=== PATIENT | male | born 1985 | race African-American/Black ===

== ENCOUNTER 2024-01-10 11:30 | Emergency (ER) | payer OTHER, SELFPAY ==
--- NOTE | ~2024-01-10 | XR_ITS ---
EXAMINATION: XR KNEE, LEFT CLINICAL INFORMATION: ? Joint effusion. Pain. COMPARISON: No priors. TECHNIQUE: Four views of the left knee. FINDINGS: There has been a [id number] amputation. There is diffuse bony osteopenia. There is an intramedullary femoral isabela in place, terminating in the metadiaphysis. The lucency nor hardware abnormality. No permeative bony changes identified to suggest infection. Mild tricompartmental joint space narrowing with probable healed posttraumatic defect of the mid patella. There is no evidence of joint effusion. There is mild prepatellar soft tissue swelling. There is mild edema in the posterior below the knee soft tissues. XR/XR knee LT 3V IMPRESSION: Status post [id number] amputation with no acute bony finding identified. Osteopenia. Mild soft tissue edema, notable in the prepatellar region. No evidence of joint effusion. Electronically signed by: Maico Olivares MD 01/10/2024 12:54 PM EDT
[2024-01-10 11:49] VITALS: BP 113/68; PULSE 94; RESP 16; TEMP 37; O2SAT 96; BMI 21.5
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
[2024-01-10 12:28] LABS: MANUAL DIFF FLAG NO
[2024-01-10 12:33] LABS: Basophils Absolute Auto 0.1 X10*3/uL (0.0-0.2); Basophils Percent Auto 0.6 % (0-2); Eosinophils Absolute Auto 0.1 X10*3/uL (0.0-0.4); Eosinophils Percent Auto 1.5 % (0-4); Hematocrit 40.5 % (42.0-52.0); Hemoglobin 14.3 g/dl (14.0-18.0); Imm Gran Abs Auto 0.03 X10*3/uL (0.00-0.03); Imm Gran Pct Auto 0.3 % (0.0-0.4); Lymphocytes Absolute Auto 1.9 X10*3/uL (1.2-4.9); Lymphocytes Percent Auto 19.9 % (20-40); Mean Corpuscular HGB Conc 35.3 g/dl (31.0-36.0); Mean Corpuscular Hemoglobin 29.5 pg (27.0-33.0); Mean Corpuscular Volume 83.7 fL (80.0-98.0); Monocytes Absolute Auto 0.5 X10*3/uL (0.1-1.2); Monocytes Percent Auto 5.5 % (2-11); Neutrophils Absolute Auto 6.8 x10*3/uL (2.0-8.3); Neutrophils Percent Auto 72.2 % (45-73); Platelet Count 292 X10*3/uL (160-400); Red Blood Count 4.84 X10*6/uL (4.60-5.80); Red Cell Distribution Width 13.2 % (11.0-16.0); White Blood Count 9.4 X10*3/uL (4.8-10.8)
[2024-01-10 12:47] LABS: Lactic Acid 2.4 mmol/L (0.5-2.0)
[2024-01-10 12:48] LABS: Alanine Aminotransferase 31 U/L (0-40); Albumin Level 4.8 g/dL (3.5-5.0); Alkaline Phosphatase 88 U/L (39-117); Anion Gap 17 (12-20); Aspartate Amino Transferase 38 U/L (5-37); Bilirubin Total 0.4 mg/dL (0.0-1.0); Blood Urea Nitrogen 11 mg/dL (9-16); C Reactive Protein 0.34 mg/dL (< or = 0.50); Calcium 9.5 mg/dL (8.4-10.2); Carbon Dioxide 25 mmol/L (22-29); Chloride 108 mmol/L (96-108); Creatinine Clr Calc Pharmacy 112.7; Estimated Glomerular Filt Rate > 60; Glucose Random 88 mg/dL (60-115); Lipase 13 U/L (8-78); Potassium 3.9 mmol/L (3.3-5.1); Sodium 146 mmol/L (135-145)
[2024-01-10 13:15] LABS: Erythrocyte Sedimentation Rate 6 MM/HR (0-15)
[2024-01-10 14:27] LABS: Reflex Lactate? Lactic Acid Added
[2024-01-10 15:08] LABS: ~Lactic Acid-LAB USE ONLY 2.4 mmol/L (0.5-2.0)
[2024-01-10 16:37] LABS: Reflex Lactate? 2 Y
[2024-01-10 16:59] VITALS: BP 121/70; PULSE 80; RESP 16; TEMP 36.4; O2SAT 98
[2024-01-10 19:34] LABS: ~Lactic Acid-LAB USE ONLY 2.8 mmol/L (0.5-2.0)
[2024-01-10 19:41] VITALS: BP 117/76; PULSE 99; RESP 18; TEMP 37.2; O2SAT 97
--- NOTE | 2024-01-10 20:50 | PC.NURSE ---
pt asking to leave providers made aware of pt status.
--- NOTE | 2024-01-10 21:14 | PC.NURSE ---
headend technician called for dr akhatr.
[2024-01-10] MEDS: Doxycycline Monohydrate 100 MG CAPSULE PO (22:09)
[2024-01-10] MEDS: Amoxicillin/Potassium Clav 875 MG TABLET PO (22:09)
[2024-01-10 22:32] VITALS: BP 120/68; PULSE 89; RESP 18; TEMP 36.9; O2SAT 98
== END 2024-01-10 22:33 | disposition home or self-care (01) ==
PROVIDERS: Physician Assistant; Emergency Provider Emergency Medicine
DX: L03.116 Cellulitis of left lower limb (principal); M25.562 Pain in left knee; Z89.512 Acquired absence of left leg below knee
CPT/HCPCS: 36415; 73562; 80053; 83605; 83690; 85025; 85652; 86140; 87040; 99283; 99284

== ENCOUNTER → 2024-01-10 11:51 | Outpatient (BNV) | payer SELFPAY | PROVIDERS: Visit Provider Radiology Diagnostic Radiology | DX: L03.116 Cellulitis of left lower limb (principal) | CPT/HCPCS: 73562 ==

== ENCOUNTER 2025-01-21 15:21 | Emergency (ER) | payer OTHER, SELFPAY ==
--- OUTSIDE RECORDS SUMMARY | 2025-01-19 10:15 | XMS_ITS | Encounter Summary ---
Author Organization [employer] Address [address] [place] [address] Care Team Providers Care Farm Machinery Mechanic Name Role Phone Yohannes Fletcher MD Primary Care Prov ider Reason for Visit * Reason Comments Routine Cleaning Encounter Details Date Type Department Care Team (Latest Contact Info) Description 01/19/2025 10:15 AM EST Office Visit [facility] [address] [place] [address] [place], Diane [address] [place] [address] Dental calculus (Primary Dx); Stage 2 grade B generalized periodontitis per AAP/EFP 2017 classification Social History Tobacco Use Types Packs/Day Years Used Date Smoking Tobacco: Never Smokeless Tobacco: Never Alcohol Use Standard Drinks/Week Comments Not Currently 1 (1 standard drink = 0.6 oz pur e alcohol) Rum Depression Answer Date Recorded Patient Health Questionnaire-9 Score 0 05/13/2024 Patient Health Questionnaire-9 Score 0 05/13/2024 Last PHQ-9: Questionnaire Data Not on file 0 05/13/2024 Housing Stability Answer Date Recorded What is your housing situation today? I have maxwell taj 01/09/[address] you li ve. Do you have problems with any of the following? None of the above 01/09/2024 Food Insecurity Answer Date Recorded Within the past 12 months, y ou worried that your food would run out before you got money to buy more: Never True 01/09/2024 Within the past 12 months,th e food you bought just didn't last and you didn't have enough money to get more: Never True Transportation Answer Date Recorded In the past 12 months, has l ack of transportation kept you from medical appts, meetings, work or from getting things needed for daily living? Yes, it has kept me from medical appointments or getting medications. 01/09/2024 Utilities Answer Date Recorded In the past 12 months, has t he electric, gas, oil or water company threatened to shut off services in your home? 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 Patient ID: Narciso House is a 39 y.o. male. Time Out: Timeout Date: 01/19/25, Timeout Time: 1044 (Prophy, Perio chart) Location: [facility] Tooth: Maxilla and Mandible Procedure: Prophylaxis Gross debridement, perio chart Verified the above with patient, health assistant, and provider. Confirmed via patient's chart, intraorally and by radiographs. Construction Recruiter: not applicable Medical Hx: Vitals: Blood pressure 116/74. Medications, Med Hx reviewed with patient and updated in chart. Treatment Provided Dental procedures in this visit D1110 - PROPHYLAXIS - ADULT (Completed) Service provider: Diane Villasenor Billing provider: Iona Yi DDS [id number] - CASE PRESENTATION, DETAILED AND EXTENSIVE TREATMENT PLANNING (Completed) Service provider: Diane Villasenor Billing provider: Iona Yi DDS Instruments Used: Ultrasonic Scalers, polished teeth to remove the heavy plaque. Oral Cancer Screening: No lesions Head/Neck Exam: No Lesions Calculus: Heavy and Generalized Plaque: Heavy and Generalized Stain: Light Bleeding: Moderate, post-op rinsed with chlorhexidine Gingiva: Bleeding on probing, Edematous, and Erythematous OH: Poor Perio Chart: Completed: Narrative: pt presents with bleeding upon probing, 2 mm to 5 mm in depths, mobility #24 with 3 mm recession, heavy calculus and plaque, took photos to show calculus. Requesting 4 quads SRP to preventfurther deterioration of periodontium. Oral hygiene instructions provided to patient including brushing technique and flossing. Recommendations: [place] two times daily, modified prakash technique, Floss daily, Electric toothbrush, Soft bristle toothbrush, [place] Tongue, Anti-sensitivity toothpaste, Listerine. Recall Frequency: SRP if approved NV: SRP UL, LL quads Hygienist: Diane Villasenor RDH * Iona Yi DDS - 01/19/2025 10:15 AM EST I have reviewed the documentation and dental procedures made by the rendering provider, Diane Villasenor RDH, and approve their chart entries for this visit. Iona Yi DDS * Iona Yi DDS - 01/19/2025 10:15 AM EST I have reviewed the documentation and dental procedures made by the rendering provider, Diane Villasenor RDH, and approve their chart entries for this visit. Iona Yi DDS documented in this encounter Plan of Treatment Scheduled Orders Name Type Priority Associated Diagnoses Orde r Schedule UL UL PERIODONTAL SCALING AND ROOT PLANING - 4 OR MORE TEETH PER QUADRANT Dental Routine [address] arting 01/19/2025 LL LL PERIODONTAL SCALING AND ROOT PLANING - 4 OR MORE TEETH PER QUADRANT Dental Routine [address] arting 01/19/2025 UR UR PERIODONTAL SCALING AND ROOT PLANING - 4 OR MORE TEETH PER QUADRANT Dental Routine [address] arting 01/19/2025 LR LR PERIODONTAL SCALING AND ROOT PLANING - 4 OR MORE TEETH PER QUADRANT Dental Routine [address] arting 01/19/2025 documented as of this encounter Procedures Procedure Name Priority Date/Time Associated Diagnosis Comments PROPHYLAXIS - ADULT Routine 01/19/2025 1 0:15 AM EST Dental calculus Stage 2 grade B generalized periodontitis per AAP/EFP 2017 classification CASE PRESENTATION, DETAILED AND EXTENSIVE TREATMENT PLANNING Routine 01/19/2025 10:15 AM EST Dental calculus Stage 2 grade B generalized periodontitis per AAP/EFP 2017 classification documented in this encounter Visit Diagnoses Diagnosis Dental calculus- Primary Accretions on teeth Stage 2 grade B generalized periodontitis per AAP/EFP 2017 classification documented in this encounter Additional Health Concerns Assessment Noted Time PHQ-9 Depression Total Score: 0 05/14/19 8:57 AM EST documented as of this encounter Care Teams Farm Machinery Mechanic Relationship Specialty Start Date End Date Yohannes Fletcher MD [address] [place] [id number] PCP - General Internal Medicine 05/13/24 documented as of this encounter
--- OUTSIDE RECORDS SUMMARY | 2025-01-21 11:20 | XMS_ITS | Encounter Summary ---
Author Organization [employer] Address [address] [place] [address] Care Team Providers Care Feed Research Aide Name Role Phone Yohannes Fletcher MD Primary Care Prov ider Encounter Details Date Type Department Care Team (Late st Contact Info) Description 01/21/2025 11:20 AM EST Office Visit [facility] [address] [place] [id number] David Hooper MD [address] [place] [address] Splinter in skin (Primary Dx); Encounter for immunization Social History Tobacco Use Types Packs/Day Years Used Date Smoking Tobacco: Never Passive Smoke Exposure: Never Smokeless Tobacco: Never Tobacco Cessation:Counseling Given: Not Answered Alcohol Use Standard Drinks/Week Comments Yes 1 (1 standard drink = 0.6 oz pur e alcohol) Rum Depression Answer Date Recorded Patient Health Questionnaire-9 Score 0 05/13/2024 Patient Health Questionnaire-9 Score 0 05/13/2024 Last PHQ-9: Questionnaire Data Not on file 0 05/13/2024 Housing Stability Answer Date Recorded What is your housing situation today? I have maxwell vang 01/09/[address] you li [...] Sign Reading Time Taken Comments Blood Pressure 123/81 01/21/2025 11:46 AM EST Pulse 71 01/21/2025 11:46 AM EST Temperature 36.4 C (97.6 F) 01/21/2025 11:46 AM EST Respiratory Rate 18 01/21/2025 11:46 AM EST Oxygen Saturation 96% 01/21/2025 12:24 PM EST Inhaled Oxygen Concentration - - Weight 69.5 kg (153 lb 2 oz) 01/21/2025 11:46 AM EST Height 172.7 cm (5' 8 ) 01/21/2025 11:46 AM EST Body Mass Index 23.28 01/21/2025 11:46 AM EST documented in this encounter Progress Notes * David Hooper MD - 01/21/2025 11:20 AM EST Subjective Patient ID: Narciso House is a 39 y.o. male. Major Sales Associate: Seb LOPEZ Last night Narciso got a wood splinter in his left hand at work. Has mild pain. No fever, chills. Right-handed. Last tetanus vaccine=? Immunization record in [facility] is blank. Lives with parents, daughter, brother. Works at [employer] at [employer]. Never Smoked. Patient Active Problem List Diagnosis Date Noted Dental calculus 01/19/2025 Stage 2 grade B generalized periodontitis per AAP/EFP 2017 classification 01/19/2025 Encounter for medical examination to establish care 05/13/2024 Left knee pain 01/11/2024 Below-knee amputation of left lower extremity (HCC) 08/23/2023 Amputation stump pain (CMS/HCC) (CMS/HCC) (HCC) 08/23/2023 Pressure injury of stump of below knee amputation, unstageable (HCC) 08/23/2023 The following portions of the chart were reviewed this encounter and updated as appropriate: Tobacco Allergies Meds Problems Med Hx Surg Hx Fam Hx Review of Systems Constitutional: Negative for fever. Respiratory: Negative for shortness of breath. Cardiovascular: Negative for chest pain. Gastrointestinal: Negative for abdominal pain. Skin: Positive for wound. Negative for rash. Neurological: Negative for headaches. Objective Physical Exam Vitals and nursing note reviewed. Constitutional: Appearance: Normal appearance. HENT: Head: Normocephalic and atraumatic. Nose: Nose normal. Eyes: Conjunctiva/sclera: Conjunctivae normal. Pupils: Pupils are equal, round, and reactive to light. Pulmonary: Effort: Pulmonary effort is normal. Musculoskeletal: Comments: Tender, ?wood splinter palpable in s.c. tissue volar surface at base of left thumb. Full ROM of thumb. Skin: General: Skin is warm and dry. Neurological: Mental Status: He is alert. Sensory: Sensation is intact. Motor: Motor function is intact. Gait: Gait is intact. Psychiatric: Mood and Affect: Mood and affect normal. Behavior: Behavior normal. Procedures Assessment/Plan Diagnoses and all orders for this visit: Splinter in skin given Tdap I called [facility], and they will not be able to schedule rell't before 2 weeks. Referred to ED. Encounter for immunization documented in this encounter Plan of Treatment Not on file documented as of this encounter Visit Diagnoses Diagnosis Splinter in skin- Primary Other, multiple, and unspecified sites, superficial foreign body (splinter), without major open wound and without mention of infection Encounter for immunization documented in this encounter Additional Health Concerns Assessment Noted Time PHQ-9 Depression Total Score: 0 05/14/19 8:57 AM EST documented as of this encounter Care Teams Feed Research Aide Relationship Specialty Start Date End Date Yohannes Fletcher MD [address] [place] [phone] PCP - General Internal Medicine 05/13/24 documented as of this encounter
[2025-01-21 15:31] VITALS: BP 109/56; PULSE 85; RESP 18; TEMP 36.8; O2SAT 93; BMI 23.2
--- NOTE | 2025-01-21 16:11 | ED_ITS ---
HPI - General Adult General Chief complaint: General Medical Stated complaint: splinter left thumb Time Seen by Provider: 01/21/25 16:11 History of Present Illness ED Provider: Shiv LOPEZ narrative: The patient is a 39-year-old male who injured his left hand yesterday evening at around 20:00. He was moving a piece of wood. He thinks he got a splinter in the palm of his left hand. He had ongoing discomfort and feels the splinter in his hand today. He went to an urgent care center where he was given a tetanus shot and referred to the emergency room. Related Data Previous Rx's ?Medication ?Instructions ?Recorded amoxicillin 875 mg-potassium 1 tab PO BID #20 tabs clavulanate 125 mg tablet doxycycline monohydrate 100 mg 100 mg PO BID #20 caps 01/10/24 capsule bacitracin 500 unit/gram topical 1 appl topical TID #1 4 grams 01/21/25 ointment cephalexin 500 mg capsule 500 mg PO QID 4 days #16 cap s 01/21/25 Allergies Allergy/AdvReac Type Severity Reaction Status Date / Time No Known Allergies Allergy Verified 01/21/25 15:34 Review of Systems Review of Systems: Yes all other systems are reviewed and are negative [facility] Social History Social History Advance Directives: No Advance Directives Information Provided: Yes Do you have a plan to hurt others: No Plan Physical Exam ED Vital Signs: Vital Signs - 24 hr 01/21/25 15:31 Temperature 98.3 F Pulse Rate 85 Respiratory Rate 18 Blood Pressure 109/56 L Pulse Oximetry 93 BMI result Body Mass Index 23.2 Const Other: the patient is a 39-year-old male who was awake and alert. He is pleasant cooperative. He does not appear in acute distress. HENMT Other: The face is symmetrical. Mucous membranes moist. Eyes General: appearance normal, both eyes and all related structures Neck Neck: Yes full ROM Resp Effort & Inspection: normal respiratory effort Skin Other: The patient has some slight redness to the skin of the palm at the base of the left thumb in the region of the webspace between the thumb and the index finger. I can palpate what feels like a small splinter a just under the skin Neuro General: no focal motor deficits and CN's II-XI intact bilaterally Extrem Other: I can palpate what feels like a small splinter under the skin of the palm near the base of the left thumb in the web space between the thumb and index finger. Medications Administered Discontinued Medications Generic Name Dose Route Start Last Admin Trade Name Aquilino PRN Reason Stop Dose Admin Bacitracin 1 appl 01/21/25 17:19 01/21/25 17:28 Bacitracin Oint 0.9 Gm Packet TOPICAL 01/21/25 17:20 1 appl ONCE ONE Administration Protocol Cephalexin HCl 1,000 mg 01/21/25 17:19 01/21/25 17:28 Cephalexin 500 Mg Capsule PO 01/21/25 17:20 1,000 mg ONCE ONE Administration Lidocaine/Epinephrine 10 ml 01/21/25 16:26 01/21/25 16:31 Lidocaine Hcl 1%/Epi 1:100,000 10 Ml Vial INFILTRATI 01/21/25 16:27 10 ml ONCE ONE Administration Procedures Procedure Narrative Procedure Narrative: EMERGENCY ULTRASOUND INTERPRETATION- Limited skin and soft tissue [This study was ordered, performed, and interpreted by myself. The study reveals: Impression: ?Visible echogenic linear foreign body in the skin [Indication: ?Presumed foreign body based on physical exam Skin: Evidence of foreign body see above Performed by: ?Caleb Rain MD ?Images were stored ] Medical Decision Making Medical Decision Making MDM Narrative: The patient has a splinter in the skin of the palm of the left hand near the base of the thumb. The skin was prepped with Betadine. I anesthetized the area with 1% lidocaine with epinephrine. I was able to use a scalpel to very slightly open the skin near where I could palpate what felt like a splinter. I was then able to use forceps to remove the splinter. This was about 8-9 mm in length. After removal of the splinter iron my colleague did an ultrasound to see if there was any additional splinter. the ultrasound revealed the presence of a 2nd splinter. I was not able to palpate this splinter as I has been able to palpate the original splinter. I therefore felt that I would need to make a larger incision to locate this splinter. Using the ultrasound to guide me I made a small incision through the prepped the skin with a #11 blade. my initial attempts were unsuccessful and I had to enlarge the incision slightly. However after multiple times I was able to grasp a 2nd splinter and remove it. The 2nd splinter was approximately 12 mm in length. Another ultrasound of the area was done and there did not seem to be any additional splinters. The patient had received a tetanus shot prior to arriving at the emergency room. I believe this was done and an urgent care center. The patient with be started on a course of cephalexin. Wound care instructions were reviewed with the patient. He should return if worse. Discharge Plan Discharge Clinical Impression: Acute foreign body of left hand Patient Disposition: Home, Self-Care Additional Instructions: I believe that all the pieces of splinters are out of your hand. Please take the antibiotic 4 times a day for the next 4 days to make sure that no infection develops. Apply bacitracin to the wound 3 times a day. Keep the wound covered with a Band-Aid. Keep the wound clean and dry. If you need to work please wear a glove to cover the hand. There is always the possibility that a small piece of splinter could be left behind in the hand. If you develop any concerns about an infection, if you have any worsening redness or swelling or pain, return to the emergency room for additional evaluation. Prescriptions: New cephalexin 500 mg capsule 500 mg PO QID 4 Days Qty: 16 0RF bacitracin 500 unit/gram ointment 1 appl topical TID Qty: 14 0RF No Action doxycycline monohydrate 100 mg capsule 100 mg PO BID Qty: 20 0RF amoxicillin-pot clavulanate 875-125 mg tablet 1 tab PO BID Qty: 20 0RF Referrals: [facility] [Provider Group] [facility] [place] [Provider Group, Internal Medicine] [facility] [place] [Provider Group, Internal Medicine] [facility], [facility] [Provider Group, Primary Care] Viky Velasquez MD [Physician, Internal Medicine] Discharge Date/Time: 01/21/25 17:34 Print Language: Russian
[2025-01-21] MEDS: Lidocaine HCl 1%/Epi 1:100,000 10 ML VIAL INFILTRATI (16:31)
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
--- OUTSIDE RECORDS SUMMARY | 2025-01-21 19:04 | XMS_ITS | Encounter Summary ---
Author Organization [employer] Address [address] [place] [address] Care Team Providers Care Pollution Control Chemist Name Role Phone Yohannes Fletcher MD Primary Care Prov ider Encounter Details Date Type Department Care Team (Latest Contact Info) Description 01/21/2025 Travel Social History Tobacco Use Types Packs/Day Years Used Date Smoking Tobacco: Never Passive Smoke Exposure: Never Smokeless Tobacco: Never Alcohol Use Standard Drinks/Week Comments Yes 1 (1 standard drink = 0.6 oz pur e alcohol) Rum Depression Answer Date Recorded Patient Health Questionnaire-9 Score 0 05/13/2024 Patient Health Questionnaire-9 Score 0 05/13/2024 Last PHQ-9: Questionnaire Data Not on file 0 05/13/2024 Housing Stability Answer Date Recorded What is your housing situation today? I have [facility] 01/09/[address] you li [...] on file documented as of this encounter Plan of Treatment Not on file documented as of this encounter Visit Diagnoses Not on filedocumented in this encounter Additional Health Concerns Assessment Noted Time PHQ-9 Depression Total Score: 0 05/14/19 8:57 AM EST documented as of this encounter Care Teams Pollution Control Chemist Relationship Specialty Start Date End Date Yohannes Fletcher MD [address] [place] [id number] PCP - General Internal Medicine 05/13/24 documented as of this encounter
== END 2025-01-21 17:34 | disposition home or self-care (01) ==
PROVIDERS: Emergency Provider Emergency Medicine
DX: S60.552A Superficial foreign body of left hand, initial encounter (principal); W45.8XXA Other foreign body or object entering through skin, initial encounter; Y93.9 Activity, unspecified; Y92.9 Unspecified place or not applicable; Y99.9 Unspecified external cause status
CPT/HCPCS: 10120; 76882; 99281; 99284; J2004